=== PATIENT | female | born 1985 ===

== ENCOUNTER 2021-02-15 17:52 | Emergency (ER) | payer OTHER ==
[~2021-02-15] VITALS: Ht 167.6 cm; Wt 91.2 kg
[2021-02-15] MEDS ORDERED: ACETAMINOPHEN 500 MG TAB PO ONE (23:30)
[2021-02-16 01:33] VITALS: BP 118/78
== END 2021-02-15 23:39 | disposition home or self-care (01) ==
LOC: EDBD 17:52 → ER 17:52
DX: S00.83XA Contusion of other part of head, initial encounter (principal); Z88.0 Allergy status to penicillin; V43.52XA Car driver injured in collision with other type car in traffic accident, initial encounter; Y93.89 Activity, other specified; Y92.488 Other paved roadways as the place of occurrence of the external cause; Y99.8 Other external cause status
CPT/HCPCS: 71045; 72040; 72170; 73090; 73562